=== PATIENT | female | born 1980 | race Hispanic/Latino ===

== ENCOUNTER 2025-02-10 13:10 | Emergency (ER) | payer SELFPAY ==
[~2025-02-10] VITALS: Ht 165.1 cm; Wt 68.5 kg
[2025-02-10 14:45] VITALS: BP 110/76; PULSE 70; RESP 18; TEMP 98.6; O2SAT 98
--- NOTE | 2025-02-10 14:46 | ERN ---
ED Note History of Present Illness Stated Complaint: BACK PAIN AND LT HIP PAIN S/P FALL Chief Complaint: Low Back Pain/Injury Time Seen by MD: 13:16 Dictation: 44-year-old female with ground level fall left hip contusion which occurred two weeks ago, no injury to head or neck. Patient reports ambulates but still having pain. Allergies: Coded Allergies: No Known Allergies (Unverified Allergy, Unknown, 02/10/25) Past Medical History Past Medical History: No Pertinent History Surgical History: None Review of System Dictation Constitutional: Negative for fever,chills, and weight loss Eyes: Negative for injury, pain,redness, and discharge ENT: Negative for injury,pain or swelling Cardiovascular: Negative for chest pain, palpitations, and edema Respiratory: Negative for shortness of breath, cough, and wheezing, Abdomen/GI: Negative for abdominal pain, nausea, vomiting, diarrhea, and constipation Back: Negative for injury and pain : Negative for injury, bleeding and discharge MS/Extremity per HPI Skin: Negative for rash, and discoloration Neuro: Negative for headache, weakness, numbness, tingling, and seizure Psych: Negative for suicide ideation, homicidal ideation, and hallucinations Initial Vital Sign VS Vital Signs Date Time Temp Pulse Resp B/P (MAP) Pulse Ox O2 Delivery O2 Flow Rate FiO2 02/10/25 13:12 98.6 70 20 112/71 99 Room Air 0 Physical Exam Dictation General: awake, alert, NAD Head/Face: Normocephalic, atraumatic Eyes: PERRL, EOMI, vision at baseline ENT: oral cavity clear, TMs clear, no signs of infection Neck: Trachea midline, supple, no nuchal rigidity Cardiovascular: RRR, normal S1/S2, No MRGs, no JVD Respiratory: CTAB, no respiratory distress, No rales or wheezes Abdomen: Soft, non-tender, non-distended, normal bowel sounds, no guarding or rebound. Skin: Warm, dry, normal turgor, no rash MS/Extremity: Pulses equal, no cyanosis, neurovascular intact, FROM, left hip TTP, no deformity Neuro: COAx4, GCS 15, strength 5/5, CN 2-12 intact, normal cerebellar exam, normal gait, Psych: Normal behavior, mood, and affect normal Results (Laboratory/Radiology) X-RAY Comment: no fractures or dislocations ED Course ED Course Orders Procedure Category Date Status Time Hip Unilat 2-3vw Left RAD 02/10/25 Taken 13:22 Lumbar Spine 2-3vws RAD 02/10/25 Taken 13:22 Diazepam 5 Mg/Ml 2 Ml PHA 02/10/25 Complete Syg (Valium 5 Mg/M 14:04 Ketorolac PHA 02/10/25 Complete Tromethamine 30mg/Ml 14:07 Current Medications Medications (Trade) Dose Ordered Sig/Darrin Route PRN Reason Start Time Stop Time Status Last Admin Dose Admin Diazepam (VALium 5 MG/ML 2 ML SYG) 5 mg ONCE STAT IM 02/10/25 14:04 02/10/25 14:06 DC 02/10/25 14:21 Ketorolac Tromethamine (toRADol) 30 mg ONCE STAT IM 02/10/25 14:07 02/10/25 14:08 DC 02/10/25 14:22 Vital Signs Date Time Temp Pulse Resp B/P (MAP) Pulse Ox O2 Delivery O2 Flow Rate FiO2 02/10/25 13:12 98.6 70 20 112/71 99 Room Air 0 Medical Decision Making MDM MDM: Differential diagnosis: Rationale: Tests considered and ordered secondary to shared decision making include: Previous outside records reviewed: Old ER visits. Risk of complication and/or morbidity or mortality of patient management: None Medications-Per medication reconciliation Need for hospitalization: Patient does not meet criteria for hospitalization. Need for emergency major/minor surgery: No There are no social concerns with this patient. Prescription drug management Prescriptions will include symptomatic care Patient's prior external medical records from other ER visits were reviewed by me as indicated. Prior testing and results from previous visits were reviewed. Prior tests were taken into account with medical decision making and resource utilization, independent historian/historians were used to obtain complete medical history. I independently interpreted the test that were performed, results were reviewed by me and considered findings on radiology if ordered. Medical management and examination interpretation discussions were had by me with other qualified healthcare professionals as indicated for the patient's care. 44-year-old female with fall left hip contusion, stable exam negative x-rays stable for discharge. DX & DISP Disposition: Discharge Departure Impression: Primary Impression: Contusion of left hip Condition: Stable Scripts Naproxen (Naproxen) 250 Mg Tablet 250 MG PO BID for 5 Days, #10 TAB Prov: MITALI IYER MD 02/10/25 Referrals: SELF,REFERRAL (PCP) MITALI IYER MD Feb 10, 2025 14:46
--- NOTE | 2025-02-11 16:54 | HMCIMG ---
CLINICAL INFORMATION Left hip pain COMPARISON None. TECHNIQUE Single AP pelvis, single additional view of the left hip FINDINGS Bones: No acute fracture. No destructive osseous abnormality. Alignment: Normal. Joints: Normal. Soft Tissues: Normal. IMPRESSION No acute bony findings or significant degenerative changes. /Chama
--- NOTE | 2025-02-11 16:54 | HMCIMG ---
CLINICAL INFORMATION Spine pain COMPARISON None. TECHNIQUE AP, lateral, and coned L5-S1 lateral view of the lumbar spine FINDINGS Vertebral Body Height: Normal. Alignment: Normal. Disc spaces: Normal. Posterior Elements: Intact. Mild lower lumbar facet arthrosis. Soft Tissues: Normal. Other: Large colonic stool volume. Vertebral Anatomy: 5 lumbar-shaped vertebrae. IMPRESSION No acute bony findings or significant degenerative changes. Mild lower lumbar facet arthrosis. Large colonic stool volume. /Draper
== END 2025-02-10 15:19 | disposition home or self-care (01) ==
LOC: EDH 13:10
DX: S70.02XA Contusion of left hip, initial encounter (principal); M47.816 Spondylosis without myelopathy or radiculopathy, lumbar region; W19.XXXA Unspecified fall, initial encounter; Y93.89 Activity, other specified; Y92.89 Other specified places as the place of occurrence of the external cause; Y99.8 Other external cause status
CPT/HCPCS: 99284; 73502; 72100; 96372; J1885; J3360